=== PATIENT | male | born 1965 | race Caucasian/White ===

== ENCOUNTER 2017-02-25 13:45 | Inpatient (IN) | payer OTHER ==
[2017-02-25 16:20] VITALS: BMI 28.9
--- NOTE | 2017-02-25 17:16 | HP ---
CIWA Score - CIWA Score Nausea/Vomitin-Mild Nausea/No Vomiting Muscle Tremors: 4-Moderate,w/Arms Extend Anxiety: 4-Mod. Anxious/Guarded Agitation: 4-Moderately Restless Paroxysmal Sweats: 1-Minimal Palms Moist Orientation: 0-Oriented Tacttile Disturbances: 0-None Auditory Disturbances: 0-None Visual Disturbances: 0-None Headache: 0-None Present CIWA-Ar Total Score: 14 Admission ROS [facility] - HPI Chief Complaint: withdrawal sx Allergies/Adverse Reactions: Allergies Allergy/AdvReac Type Severity Reaction Status Date / Time No Known Allergies Allergy Verified 02/25/17 17:16 History of Present Illness: 51 years old male with long history of alcohol dependence has hypertension seizure and bipolar ii is admitted to detox patient went to [facility] 02/25/17 due to lack of available bed transferred to [facility] for alcohol detox Exam Limitations: No Limitations - Ebola screening Have you traveled outside of the country in the last 21 days: No Have you had contact with anyone from an Ebola affected area: No Have you been sick,other than usual withdrawal symptoms: No Do you have a fever: No - Review of Systems Constitutional: Changes in sleep, Weight Stable EENT: reports: No Symptoms Reported Respiratory: reports: Productive cough (white thin phlem) Cardiac: reports: No Symptoms Reported GI: reports: Nausea, Poor Fluid Intake, Abdominal cramping : reports: No Symptoms Reported Musculoskeletal: reports: No Symptoms Reported Integumentary: reports: Change in Color, Erythema, Lumps, Rash Neuro: reports: Seizure (2004 alcohol withdrawal related began kera "few years ago" last episode 07/2016, history of head trauma), Tremors Endocrine: reports: No Symptoms Reported Hematology: reports: No Symptoms Reported Psychiatric: reports: Judgement Intact, Orientated x3, Anxious, Depressed Other Systems: Reviewed and Negative Patient History - Patient Medical History Hx Anemia: No Hx Asthma: No Hx Chronic Obstructive Pulmonary Disease (COPD): No Hx Cancer: No Hx Cardiac Disorders: No Hx Congestive Heart Failure: No Hx Hypertension: Yes Hx Hypercholesterolemia: No Hx Pacemaker: No 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) Hx Seizures: Yes (alcohol related last 2005) Hx Dementia: No Hx Diabetes: No Hx Gastrointestinal Disorders: No Hx Liver Disease: No Hx Genitourinary Disorders: No Hx Sexually Transmitted Disorders: No Hx Renal Disease (ESRD): No Hx Thyroid Disease: No Hx Human Immunodeficiency Virus (HIV): No Hx Hepatitis C: No Hx Depression: No Hx Suicide Attempt: No Hx Bipolar Disorder: Yes Hx Schizophrenia: No - Patient Surgical History Past Surgical History: No Hx Neurologic Surgery: No Hx Cataract Extraction: No Hx Cardiac Surgery: No Hx Lung Surgery: No Hx Breast Surgery: No Hx Breast Biopsy: No Hx Abdominal Surgery: No Hx Appendectomy: No Hx Cholecystectomy: No Hx Genitourinary Surgery: No Hx Orthopedic Surgery: No - PPD History Previous Implant?: Yes Documented Results: Negative w/proof Implanted On Prior R Admission?: Yes Date: 10/26/14 Results: 0mm PPD to be Administered?: Yes - Smoking Cessation Smoking history: Never smoked Have you smoked in the past 12 months: No Hx Chewing Tobacco Use: No Initiated information on smoking cessation: No - Substance & Tx. History Hx Alcohol Use: Yes Hx Substance Use: No Substance Use Type: Alcohol Hx Substance Use Treatment: Yes (2014) - Substances Abused Alcohol Route: Oral Frequency: Daily Amount used: josé miguel marin Age of first use: 15 Date of Last Use: 02/25/17 Family Disease History - Family Disease History Family Disease History: CA: Father (HAD CA. OF THE LUNG AND ), Other: Grandparent (ADDICTED TO ETOH), Brother (one brother) Admission Physical Exam [facility] - Vital Signs Vital Signs: Vital Signs - 24 hr 02/25/17 16:17 Temperature 96.1 F L Pulse Rate 95 H Respiratory 20 Rate Blood Pressure 126/87 - Physical General Appearance: Yes: Nourished, Appropriately Dressed, Mild Distress, Alcohol on Breath, Tremorous, Irritable, Sweating, Anxious HEENTM: Yes: Hearing grossly Normal, Normal ENT Inspection, Normocephalic, Normal Voice Respiratory: Yes: Chest Non-Tender, Lungs Clear, Normal Breath Sounds, No Respiratory Distress, No Accessory Muscle Use Neck: Yes: Supple, Trachea in good position Breast: Yes: Breasts Symetrical Cardiology: Yes: Regular Rhythm, S1, S2, Tachycardia Abdominal: Yes: Non Tender, Soft Genitourinary: Yes: Within Normal Limits Back: Yes: Normal Inspection Musculoskeletal: Yes: full range of Motion, Gait Steady Extremities: Yes: Normal Inspection, Normal Range of Motion, Non-Tender, Tremors , Swelling (left calf), Inflammation (left calf) Neurological: Yes: Alert, Motor Strength 5/5, Normal Response, Depressed Affect Integumentary: Yes: Warm Lymphatic: Yes: Within Normal Limits - Diagnostic (1) Bipolar 1 disorder, depressed, moderate Current Visit: Yes Status: Suspected (2) HTN (hypertension) Current Visit: Yes Status: Chronic Qualifiers: Hypertension type: essential hypertension Qualified Code(s): I10 - Essential (primary) hypertension; I10 - Essential (primary) hypertension; I10 - Essential (primary) hypertension (3) Alcohol dependence with uncomplicated withdrawal Current Visit: Yes Status: Acute (4) Seizure Current Visit: Yes Status: Chronic (5) Cellulitis Current Visit: Yes Status: Acute Qualifiers: Site of cellulitis: extremity Site of cellulitis of extremity: lower extremity Laterality: left Qualified Code(s): L03.116 - Cellulitis of left lower limb; L03.116 - Cellulitis of left lower limb Cleared for Admission [facility] - Detox or Rehab [facility] Level of Care: Medically Managed Detox Regimen/Protocol: Librium [facility] Breath Alcohol Content Breath Alcohol Content: 0.069 Urine Drug Screen - Results Drug Screen Negative: No Urine Drug Screen Results: BZO-Benzodiazepines
[2017-02-25] MEDS ORDERED: MENTHOL/PHENOL 1 EACH UD MM PRN (17:23)
[2017-02-25] MEDS ORDERED: MAG HYDROX/AL HYDROX/SIMETH 30 ML UNIT-DOSE CUP PO PRN (17:23)
[2017-02-25] MEDS ORDERED: ACETAMINOPHEN 325 MG TABLET (FP) PO PRN (17:23)
[2017-02-25] MEDS ORDERED: MAGNESIUM HYDROX 2400MG/30ML ORAL SUSPENSION 30 ML CUP PO PRN (17:23)
[2017-02-25] MEDS ORDERED: LOPERAMIDE HCL 2 MG CAPSULE PO PRN (17:23)
[2017-02-25] MEDS ORDERED: chlordiazePOXIDE HCL 25 MG CAPSULE PO PRN (17:23)
[2017-02-25] MEDS ORDERED: IBUPROFEN 400 MG TABLET (FP) PO PRN (17:23)
[2017-02-25] MEDS ORDERED: chlordiazePOXIDE HCL 25 MG CAPSULE PO ONE (17:23)
[2017-02-25] MEDS ORDERED: MAGNESIUM CITRATE 300 ML BOTTLE PO PRN (17:23)
[2017-02-25] MEDS ORDERED: P-EPHED 60MG/TRIPROLIDI 2.5MG TABLET PO PRN (17:23)
[2017-02-25] MEDS ORDERED: guaiFENesin/D-METHORPHAN HB 10 ML UNIT-DOSE CUPS PO PRN (17:23)
[2017-02-25 21:02] LABS: URINE APPEARANCE CLEAR; URINE BILIRUBIN NEGATIVE (NEGATIVE); URINE BLOOD NEGATIVE (NEGATIVE); URINE COLOR YELLOW; URINE GLUCOSE (UA) NEGATIVE (NEGATIVE); URINE KETONE NEGATIVE (NEGATIVE); URINE LEUK ESTERASE NEGATIVE (NEGATIVE); URINE NITRITE NEGATIVE (NEGATIVE); URINE PROTEIN NEGATIVE (NEGATIVE); URINE UROBILINOGEN NEGATIVE mg/dL (0.2-1.0)
[2017-02-25] MEDS: chlordiazePOXIDE HCL 25 MG CAPSULE PO SCH (22:46)
[2017-02-25] MEDS: levETIRAcetam 500 MG TABLET (FP) PO SCH (22:47)
[2017-02-25] MEDS: THIAMINE HCL 100 MG TABLET (FP) PO SCH (22:49)
[2017-02-25] MEDS: diphenhydrAMINE HCL 50 MG CAPSULE PO PRN (22:49)
[2017-02-26] MEDS: CEPHALEXIN MONOHYDRATE 500 MG CAPSULE (UD) PO SCH ×5 (00:02→23:00)
[2017-02-26] MEDS: chlordiazePOXIDE HCL 25 MG CAPSULE PO SCH ×4 (05:33→22:31)
[2017-02-26 10:10] LABS: MCH 32.6 pg (25.7-33.7); MCHC 34.4 g/dl (32.0-35.9); MEAN CELL VOLUME 94.9 fl (80-96); MEAN PLT VOLUME 7.1 fl (7.5-11.1); PLATELET COUNT 186 K/MM3 (134-434); RDW 12.8 % (11.9-15.9); WHITE BLOOD COUNT 6.6 K/mm3 (4.0-10.0)
--- NOTE | 2017-02-26 10:11 | CONSULT ---
[facility] Psychiatric Consult - Data Date of interview: 02/26/17 Admission source: [facility] Identifying data: The patient is 51 years ols fathr of 2 grown sons,undomiciled,supported by PA is seeking detox for alcohol. Substance Abuse History: Long and extensive history of alcohol dependencemReports drinking one-twoo pints of hard liquors and 12 pack of beer daily.Longest period of abstinence is about 1 year. Medical History: Significant for HTN. Psychiatric History: Reports no history of psychiatric admissions.No suicidal attempts.Patient was seen by psychiatrist at [facility] about 2-3 years ago and prescibed Neurontin 800 mg po tid and Prozac 60 mg po daily.Patient stopped taking his medications a few years ago and is not willing to restart at present. Physical/Sexual Abuse/Trauma History: denies Mental Status Exam - Mental Status Exam Alert and Oriented to: Time, Place, Person Cognitive Function: Grossly Intact Patient Appearance: Well Groomed Mood: Euthymic Affect: Appropriate, Mood Congruent Patient Behavior: Appropriate, Cooperative Speech Pattern: Clear Voice Loudness: Normal Thought Process: Goal Oriented Thought Disorder: Not Present Hallucinations: Denies Suicidal Ideation: Denies Homicidal Ideation: Denies Insight/Judgement: Fair Sleep: Fair Appetite: Fair Muscle strength/Tone: Normal Psychiatric Findings - Problem List ([place] 1, 2,3) (1) Cellulitis Current Visit: Yes Status: Inactive Qualifiers: Site of cellulitis: extremity Site of cellulitis of extremity: lower extremity Laterality: left Qualified Code(s): L03.116 - Cellulitis of left lower limb; L03.116 - Cellulitis of left lower limb (2) HTN (hypertension) Current Visit: Yes Status: Chronic Qualifiers: Hypertension type: essential hypertension Qualified Code(s): I10 - Essential (primary) hypertension; I10 - Essential (primary) hypertension; I10 - Essential (primary) hypertension (3) Seizure Current Visit: Yes Status: Inactive (4) Alcohol dependence Current Visit: Yes Status: Chronic (5) Substance induced mood disorder Current Visit: Yes Status: Chronic - Initial Treatment Plan Initial Treatment Plan: Consider antidepressants,mood stabilizers if needed. Will monitor progress.
[2017-02-26] MEDS: PRENATAL VITAMINS W/ FOLIC ACID TABLET (FP) PO SCH (11:12)
[2017-02-26] MEDS: levETIRAcetam 500 MG TABLET (FP) PO SCH ×2 (11:12→22:33)
[2017-02-26] MEDS: METOPROLOL SUCCINATE 50 MG TAB.SR.24H (FP) PO SCH (11:12)
[2017-02-26 11:14] LABS: ALBUMIN 3.7 g/dl (3.4-5.0); ALK PHOS 135 U/L (45-117); ANION GAP 8 (8-16); BILIRUBIN,TOTAL 1.4 mg/dL (0.2-1.0); CALCIUM 8.9 mg/dL (8.5-10.1); CO2 31 mmol/L (21-32); CREATININE 0.8 mg/dL (0.7-1.3); GLUCOSE,RANDOM 88 mg/dL (74-106); SGOT/AST 20 U/L (15-37); SGPT/ALT 27 U/L (12-78); TOT PROT 7.3 g/dl (6.4-8.2)
[2017-02-26 11:49] LABS: HIV 1 & 2 AB NEGATIVE; HIV 1 AGp24 NEGATIVE
[2017-02-26] MEDS ORDERED: FLU VACCINE QUAD 60 MCG/0.5 ML (MDV 17-18) IM ONE (12:00)
--- NOTE | 2017-02-26 12:09 | PN ---
[facility] CIWA - CIWA Score Nausea/Vomitin Muscle Tremors: 3 Anxiety: 3 Agitation: 3 Paroxysmal Sweats: 1-Minimal Palms Moist Orientation: 0-Oriented Tacttile Disturbances: 1-Very Mild Itch/Numbness Auditory Disturbances: 1-Very Mild Visual Disturbances: 0-None Headache: 2-Mild CIWA-Ar Total Score: 17 [facility] Progress Note (SOAP) Subjective: ALERT,IRRITABLE,ANXIOUS,INTERRUPTED SLEEP,TREMOR Objective: 02/26/17 12:07 Vital Signs Temperature 97.5 F L 02/26/17 10:19 Pulse Rate 74 02/26/17 10:19 Respiratory Rate 18 02/26/17 10:19 Blood Pressure 126/85 02/26/17 10:19 O2 Sat by Pulse Oximetry (%) EKG NSR 83/MIN NO CHEST PAIN,NO SOB,NO DIZZINESS Laboratory Last Values WBC 6.6 K/mm3 (4.0-10.0) 02/26/17 07:00 RBC 4.59 M/mm3 (4.00-5.60) 02/26/17 07:00 Hgb 15.0 GM/dL (11.7-16.9) D 02/26/17 07:00 Hct 43.5 % (35.4-49) 02/26/17 07:00 MCV 94.9 fl (80-96) 02/26/17 07:00 MCH 32.6 pg (25.7-33.7) 02/26/17 07:00 MCHC 34.4 g/dl (32.0-35.9) 02/26/17 07:00 RDW 12.8 % (11.9-15.9) 02/26/17 07:00 Plt Count 186 K/MM3 (134-434) 02/26/17 07:00 MPV 7.1 fl (7.5-11.1) L 02/26/17 07:00 Sodium 140 mmol/L (136-145) 02/26/17 07:00 Potassium 3.5 mmol/L (3.5-5.1) 02/26/17 07:00 Chloride 101 mmol/L (98-107) 02/26/17 07:00 Carbon Dioxide 31 mmol/L (21-32) 02/26/17 07:00 Anion Gap 8 (8-16) 02/26/17 07:00 BUN 11 mg/dL (7-18) D 02/26/17 07:00 Creatinine 0.8 mg/dL (0.7-1.3) D 02/26/17 07:00 Creat Clearance w eGFR > 60 (>60) 02/26/17 07:00 Random Glucose 88 mg/dL (74-106) 02/26/17 07:00 Calcium 8.9 mg/dL (8.5-10.1) 02/26/17 07:00 Total Bilirubin 1.4 mg/dL (0.2-1.0) H D 02/26/17 07:00 AST 20 U/L (15-37) 02/26/17 07:00 ALT 27 U/L (12-78) 02/26/17 07:00 Alkaline Phosphatase 135 U/L (45-117) H 02/26/17 07:00 Total Protein 7.3 g/dl (6.4-8.2) 02/26/17 07:00 Albumin 3.7 g/dl (3.4-5.0) 02/26/17 07:00 Urine Color Yellow 02/25/17 18:40 Urine Appearance Clear 02/25/17 18:40 Urine pH 5.0 (5.0-8.0) 02/25/17 18:40 Ur Specific [place] 1.025 (1.005-1.025) 02/25/17 18:40 Urine Protein Negative (NEGATIVE) 02/25/17 18:40 Urine Glucose (UA) Negative (NEGATIVE) 02/25/17 18:40 Urine Ketones Negative (NEGATIVE) 02/25/17 18:40 Urine Blood Negative (NEGATIVE) 02/25/17 18:40 Urine Nitrite Negative (NEGATIVE) 02/25/17 18:40 Urine Bilirubin Negative (NEGATIVE) 02/25/17 18:40 Urine Urobilinogen Negative mg/dL (0.2-1.0) 02/25/17 18:40 RPR Titer Nonreactive (NONREACTIVE) 02/26/17 07:00 HIV 1&2 Antibody Screen Negative 02/26/17 08:00 HIV P24 Antigen Negative 02/26/17 08:00 Assessment: 02/26/17 12:09 WITHDRAWAL SYMPTOM Plan: CONTINUE DETOX
--- NOTE | 2017-02-26 14:24 | EKG ---
Test Reason : Blood Pressure : / mmHG Vent. Rate : 082 BPM Atrial Rate : 082 BPM P-R Int : 132 ms QRS Dur : 080 ms QT Int : 378 ms P-R-T Axes : 051 009 031 degrees QTc Int : 441 ms SINUS RHYTHM WITH OCCASIONAL PREMATURE VENTRICULAR COMPLEXES CANNOT RULE OUT INFERIOR INFARCT , AGE UNDETERMINED ABNORMAL ECG NO PREVIOUS ECGS AVAILABLE Confirmed by ALLISON DORMAN MD ([id number]) on 02/26/2017 2:23:57 PM Referred By: Confirmed By:ALLISON DORMAN MD
[2017-02-26] MEDS: diphenhydrAMINE HCL 50 MG CAPSULE PO PRN (22:31)
[2017-02-26] MEDS: THIAMINE HCL 100 MG TABLET (FP) PO SCH (22:33)
[2017-02-27] MEDS: CEPHALEXIN MONOHYDRATE 500 MG CAPSULE (UD) PO SCH ×3 (06:17→17:36)
[2017-02-27] MEDS: chlordiazePOXIDE HCL 25 MG CAPSULE PO SCH ×3 (06:17→17:36)
[2017-02-27] MEDS: levETIRAcetam 500 MG TABLET (FP) PO SCH ×2 (10:45→22:35)
[2017-02-27] MEDS: METOPROLOL SUCCINATE 50 MG TAB.SR.24H (FP) PO SCH (10:45)
[2017-02-27] MEDS: PRENATAL VITAMINS W/ FOLIC ACID TABLET (FP) PO SCH (10:45)
--- NOTE | 2017-02-27 10:51 | PN ---
[facility] CIWA - CIWA Score Nausea/Vomitin Muscle Tremors: 3 Anxiety: 2 Agitation: 3 Paroxysmal Sweats: 1-Minimal Palms Moist Orientation: 0-Oriented Tacttile Disturbances: 1-Very Mild Itch/Numbness Auditory Disturbances: 1-Very Mild Visual Disturbances: 0-None Headache: 2-Mild CIWA-Ar Total Score: 16 [facility] Progress Note (SOAP) Subjective: alert,irritable,anxious,interrupted sleep,tremor Objective: 02/27/17 10:51 Vital Signs Temperature 97.5 F L 02/27/17 10:00 Pulse Rate 74 02/27/17 10:00 Respiratory Rate 18 02/27/17 10:00 Blood Pressure 127/86 02/27/17 10:00 O2 Sat by Pulse Oximetry (%) Assessment: 02/27/17 10:51 withdrawal symptom Plan: continue detox
[2017-02-27] MEDS: diphenhydrAMINE HCL 50 MG CAPSULE PO PRN (22:36)
[2017-02-27] MEDS: chlordiazePOXIDE 5 MG CAPSULE PO SCH (22:36)
[2017-02-27] MEDS: THIAMINE HCL 100 MG TABLET (FP) PO SCH (22:37)
[2017-02-28] MEDS: CEPHALEXIN MONOHYDRATE 500 MG CAPSULE (UD) PO SCH ×5 (01:17→23:09)
[2017-02-28] MEDS: chlordiazePOXIDE 5 MG CAPSULE PO SCH ×3 (06:44→17:50)
--- NOTE | 2017-02-28 09:46 | PN ---
[facility] Progress Note (SOAP) Subjective: Pt. c/o feeling depressed,he's angry and somewhat agitated. He was seen by psychiatry but no meds were prescribed. Home med list includes Lety. Objective: 02/28/17 09:44 Vital Signs - 8 hr 02/28/17 02/28/17 03:30 06:00 Temperature 97.3 F L Pulse Rate 67 Respiratory 18 18 Rate Blood Pressure 116/77 Laboratory Last Values WBC 6.6 K/mm3 (4.0-10.0) 02/26/17 07:00 RBC 4.59 M/mm3 (4.00-5.60) 02/26/17 07:00 Hgb 15.0 GM/dL (11.7-16.9) D 02/26/17 07:00 Hct 43.5 % (35.4-49) 02/26/17 07:00 MCV 94.9 fl (80-96) 02/26/17 07:00 MCH 32.6 pg (25.7-33.7) 02/26/17 07:00 MCHC 34.4 g/dl (32.0-35.9) 02/26/17 07:00 RDW 12.8 % (11.9-15.9) 02/26/17 07:00 Plt Count 186 K/MM3 (134-434) 02/26/17 07:00 MPV 7.1 fl (7.5-11.1) L 02/26/17 07:00 Sodium 140 mmol/L (136-145) 02/26/17 07:00 Potassium 3.5 mmol/L (3.5-5.1) 02/26/17 07:00 Chloride 101 mmol/L (98-107) 02/26/17 07:00 Carbon Dioxide 31 mmol/L (21-32) 02/26/17 07:00 Anion Gap 8 (8-16) 02/26/17 07:00 BUN 11 mg/dL (7-18) D 02/26/17 07:00 Creatinine 0.8 mg/dL (0.7-1.3) D 02/26/17 07:00 Creat Clearance w eGFR > 60 (>60) 02/26/17 07:00 Random Glucose 88 mg/dL (74-106) 02/26/17 07:00 Calcium 8.9 mg/dL (8.5-10.1) 02/26/17 07:00 Total Bilirubin 1.4 mg/dL (0.2-1.0) H D 02/26/17 07:00 AST 20 U/L (15-37) 02/26/17 07:00 ALT 27 U/L (12-78) 02/26/17 07:00 Alkaline Phosphatase 135 U/L (45-117) H 02/26/17 07:00 Total Protein 7.3 g/dl (6.4-8.2) 02/26/17 07:00 Albumin 3.7 g/dl (3.4-5.0) 02/26/17 07:00 Urine Color Yellow 02/25/17 18:40 Urine Appearance Clear 02/25/17 18:40 Urine pH 5.0 (5.0-8.0) 02/25/17 18:40 Ur Specific [place] 1.025 (1.005-1.025) 02/25/17 18:40 Urine Protein Negative (NEGATIVE) 02/25/17 18:40 Urine Glucose (UA) Negative (NEGATIVE) 02/25/17 18:40 Urine Ketones Negative (NEGATIVE) 02/25/17 18:40 Urine Blood Negative (NEGATIVE) 02/25/17 18:40 Urine Nitrite Negative (NEGATIVE) 02/25/17 18:40 Urine Bilirubin Negative (NEGATIVE) 02/25/17 18:40 Urine Urobilinogen Negative mg/dL (0.2-1.0) 02/25/17 18:40 RPR Titer Nonreactive (NONREACTIVE) 02/26/17 07:00 HIV 1&2 Antibody Screen Negative 02/26/17 08:00 HIV P24 Antigen Negative 02/26/17 08:00 labs noted Assessment: 02/28/17 09:45 Withdrawal sx. Depression Plan: F/U psych consult ordered, spoke to psychiatrist who will see pt. shortly.
[2017-02-28] MEDS: levETIRAcetam 500 MG TABLET (FP) PO SCH ×2 (10:30→22:09)
[2017-02-28] MEDS: PRENATAL VITAMINS W/ FOLIC ACID TABLET (FP) PO SCH (10:30)
[2017-02-28] MEDS: METOPROLOL SUCCINATE 50 MG TAB.SR.24H (FP) PO SCH (10:31)
--- NOTE | 2017-02-28 18:44 | PN ---
Psychiatric Progress Note Vital Signs: Vital Signs Period Temp Pulse Resp BP Sys/Sin Pulse Ox Last 24 Hr 97.2 F-98.1 F 67-86 18-20 116-142/69-88 Date of Session: 02/28/17 Chief Complaint:: " I feel fatigued and depressed sometimes." HPI: Case of a 51 y/o male addressing alcohol dependence.Nearing completion of detoxification.Psychiatric follow-up is sought to address patient' s complaint of chronic dysphoria.Otherwise benign hospital course. ROS: Patient is alert,well groomed.Fully oriented.Ambulatory.Pleasant on approach.No somatic complaint offered at this time. Current Medications: Active Medications Generic Name Dose Route Start Last Admin Trade Name Freq PRN Reason Stop Dose Admin Acetaminophen 650 mg 02/25/17 17:23 Tylenol - PO Q4H PRN FEVER OR PAIN Al Hydroxide/Mg Hydroxide 30 ml 02/25/17 17:23 Mylanta Oral Suspension - PO Q6H PRN DYSPEPSIA Cephalexin HCl 500 mg 02/26/17 00:00 02/28/17 17:50 Keflex - PO 03/01/17 18:01 500 mg Q6HPO MARIA DE JESUS Administration Chlordiazepoxide HCl 10 mg 02/28/17 23:00 Librium - PO 03/01/17 17:01 [id number] MARIA DE JESUS Diphenhydramine HCl 50 mg 02/25/17 17:23 02/27/17 22:36 Benadryl - PO 50 mg HSMR1 PRN Administration INSOMNIA Eucalyptus/Menthol/Phenol/Sorbitol 1 each 02/25/17 17:23 Cepastat Lozenge - MM Q4H PRN SORE THROAT Fluoxetine HCl 20 mg 03/01/17 10:00 Prozac - PO DAILY MARIA DE JESUS Guaifenesin 10 ml 02/25/17 17:23 Robitussin Dm - PO Q6H PRN COUGH Ibuprofen 400 mg 02/25/17 17:23 Motrin - PO Q6H PRN SEVERE PAIN Levetiracetam 750 mg 02/25/17 22:00 02/28/17 10:30 Keppra - PO 750 mg BID MARIA DE JESUS Administration Loperamide HCl 4 mg 02/25/17 17:23 Imodium - PO Q6H PRN DIARRHEA Magnesium Citrate 300 ml 02/25/17 17:23 Citroma - PO Q48H PRN CONSTIPATION Magnesium Hydroxide 30 ml 02/25/17 17:23 Milk Of Magnesia - PO DAILY PRN CONSTIPATION Metoprolol Succinate 50 mg 02/26/17 10:00 02/28/17 10:31 Toprol Xl - PO 50 mg DAILY MARIA DE JESUS Administration Multivit/Folic Acid/Iron 1 tab 02/26/17 10:00 02/28/17 10:30 Vitamins (Sjr) - PO 1 tab DAILY MARIA DE JESUS Administration Pseudoephedrine/Triprolidine 1 combo 02/25/17 17:23 Actifed - PO TID PRN NASAL CONGESTION Thiamine HCl 100 mg 02/25/17 22:00 02/27/17 22:37 Vitamin B1 - PO 100 mg HS MARIA DE JESUS Administration Medication(s) Change(s): Patient agrees to restart prozac 20 mg po daily.Side effects/benefits are discussed with patient. Current Side Effect: No Lab tests ordered: No Lab tests reviewed: Yes Provider note:: Chart reviewed.Case was presented by Dr Claros,source of referral.Dr Gaines's note is appreciated.Patient is interviewed.Noted as a good historian,articulate and well aware of his issues (alcoholism, interpersonal conflicts,mood reactivity).Motivated for maintenance of abstinence.Mr Kaye is expressing the desire to transition to rehabilitation at the completion of his detox treatment.Doing well in spite of transient symptoms of anxiety and dysphoria.Baseline. Total face to face time:: 35 Mental Status Exam - Mental Status Exam Alert and Oriented to: Time, Place, Person Cognitive Function: Good Patient Appearance: Well Groomed Mood: Anxious (mildly anxious), Hopeful Affect: Normal Range Patient Behavior: Cooperative Speech Pattern: Clear (articulate) Voice Loudness: Normal Thought Process: Intact, Goal Oriented Thought Disorder: Not Present Hallucinations: Denies Suicidal Ideation: Denies Homicidal Ideation: Denies Insight/Judgement: Fair Sleep: Fair Appetite: Good Muscle strength/Tone: Normal Gait/Station: Normal Psychiatric Treatment Plan - Problem List (1) Alcohol dependence with uncomplicated withdrawal Current Visit: Yes (2) Substance induced mood disorder Current Visit: Yes (3) Nicotine dependence Current Visit: Yes (4) HTN (hypertension) Current Visit: Yes Qualifiers: Hypertension type: essential hypertension Qualified Code(s): I10 - Essential (primary) hypertension; I10 - Essential (primary) hypertension; I10 - Essential (primary) hypertension
[2017-02-28] MEDS: diphenhydrAMINE HCL 50 MG CAPSULE PO PRN (22:08)
[2017-02-28] MEDS: THIAMINE HCL 100 MG TABLET (FP) PO SCH (22:10)
[2017-02-28] MEDS: chlordiazePOXIDE HCL 10 MG CAPSULE PO SCH (22:10)
[2017-03-01] MEDS: chlordiazePOXIDE HCL 10 MG CAPSULE PO SCH (06:03)
[2017-03-01] MEDS: CEPHALEXIN MONOHYDRATE 500 MG CAPSULE (UD) PO SCH (06:03)
--- NOTE | 2017-03-01 09:51 | DS ---
[facility] Detox Discharge Summary Admission Date: 02/25/17 Discharge Date: 03/01/17 - History Present History: Alcohol Dependence Additional Comments: FOLLOW UP WITH [facility] Pertinent Past History: SEIZURE HYPERTENSION CELLULITIS BIPOLAR 1 DISORDER - Physical Exam Results Vital Signs: Vital Signs Temperature 97.3 F L 03/01/17 06:00 Pulse Rate 65 03/01/17 06:00 Respiratory Rate 18 03/01/17 06:00 Blood Pressure 136/95 03/01/17 06:00 O2 Sat by Pulse Oximetry (%) Pertinent Admission Physical Exam Findings: WITHDRAWAL SYMPTOM - Treatment Hospital Course: Detox Protocol Followed, Detoxed Safely, Responded well, Discharged Condition Good, Rehab Referral Accepted Patient has Accepted a Rehab Referral to: [facility] - Medication Discharge Medications: Ambulatory Orders Aripiprazole [Abilify -] 10 mg PO HS 02/25/17 Levetiracetam [Keppra -] 750 mg PO BID 02/25/17 Metoprolol Succinate [Toprol Xl] 50 mg PO AM 02/25/17 - Diagnosis (1) Alcohol dependence with uncomplicated withdrawal Current Visit: Yes Status: Acute (2) Nicotine dependence Current Visit: Yes Status: Acute (3) Psychoactive substance-induced mood disorder Current Visit: Yes Status: Acute (4) Alcohol dependence Current Visit: Yes Status: Chronic (5) HTN (hypertension) Current Visit: Yes Status: Chronic Qualifiers: Hypertension type: essential hypertension Qualified Code(s): I10 - Essential (primary) hypertension; I10 - Essential (primary) hypertension; I10 - Essential (primary) hypertension (6) Substance induced mood disorder Current Visit: Yes Status: Chronic (7) Bipolar 1 disorder, depressed, moderate Current Visit: Yes Status: Suspected (8) Cellulitis Current Visit: Yes Status: Inactive Qualifiers: Site of cellulitis: extremity Site of cellulitis of extremity: lower extremity Laterality: left Qualified Code(s): L03.116 - Cellulitis of left lower limb; L03.116 - Cellulitis of left lower limb (9) Seizure Current Visit: Yes Status: Inactive (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
[2017-03-01] MEDS ORDERED: FLUoxetine HCL 20 MG CAPSULE (FP) PO SCH (10:00)
[2017-03-01] MEDS: levETIRAcetam 500 MG TABLET (FP) PO SCH (10:02)
[2017-03-01] MEDS: METOPROLOL SUCCINATE 50 MG TAB.SR.24H (FP) PO SCH (10:03)
[2017-03-01] MEDS: PRENATAL VITAMINS W/ FOLIC ACID TABLET (FP) PO SCH (10:04)
[2017-03-01 10:24] VITALS: BP 111/76; PULSE 79; TEMP 97.8
== END 2017-03-01 10:06 | disposition home or self-care (01) | DRG 775 ==
LOC: YASAS 13:45 → Y6N 18:14
PROVIDERS: ADMIT Internal Medicine; ATTEND Internal Medicine
PROC: HZ2ZZZZ Detoxification Services for Substance Abuse Treatment (ICD-10-PCS; principal; 2017-02-25)
DX: F10.230 Alcohol dependence with withdrawal, uncomplicated (principal); F10.282 Alcohol dependence with alcohol-induced sleep disorder; F17.210 Nicotine dependence, cigarettes, uncomplicated; F31.32 Bipolar disorder, current episode depressed, moderate; F19.24 Other psychoactive substance dependence with psychoactive substance-induced mood disorder; L03.116 Cellulitis of left lower limb; G40.909 Epilepsy, unspecified, not intractable, without status epilepticus; R00.0 Tachycardia, unspecified; Z59.0 Homelessness
CPT/HCPCS: 36415; 80053; 81003; 85027; 86593; 87389; 90688; 93005; 93010; G0008